=== PATIENT | female | born 1980 ===

== ENCOUNTER 2017-03-27 11:45 | Emergency (ER) | payer MEDICAID, OTHER ==
[2017-03-27 12:20] VITALS: BMI 26.0
[2017-03-27] MEDS ORDERED: Sodium Chloride 0.9% 1,000 ML IV ONE ×2 (12:27→15:50)
--- NOTE | 2017-03-27 12:27 | C.PDOC ---
History Of Present Illness 37 Y/O FEMALE PRESENTS TO ED FOR EVALUATION OF EDWARDS, ACUTE EXAC CHRONIC BACK PAIN , ASTHMA EXAC, SINUS OCHOA X SEV DAYS. NO FEVER. PS GETS EDWARDS 1-2X/MO BUT CURRENT EDWARDS MORE PROLONGED THAN USUAL. PATIENT ADMITS TO TIGHTNESS ,NAUSEA, VOMITING AND CURRENT BACK PAIN R LB, SIM TO PRIOR. PS HASNT HAD ASTHMA SX "FOR A LONG TIME", NO LONGER HAS ASTHMA MEDS. NO SMOKING. EDWARDS, ACUTE EXAC CHRONIC BACK PAIN, ASTHMA EXAC, SINUS OCHOA X SEV DAYS. NO FEVER. PS GETS EDWARDS 1-2X/MO BUT CURRENT EDWARDS MORE PROLONGED THAN USUAL. +NV. CURRENT BACK PAIN R LB, SIM TO PRIOR. PS HASNT HAD ASTHMA SX "FOR A LONG TIME", NO LONGER HAS ASTHMA MEDS. CO TIGHTNESS. NO SMOKING. EXAM MILD DIST NONTOXIC HEENT +SINUS OCHOA RHINORRHEA; THROAT CLEAR NO ERYTHEMA, EXUDATE, SWELL NO PHOTOPHOBIA NECK SUPPLE NO MENINGISMUS LUNGS OCC EXP WHEEZE NO TACHYPNEA, RETRACTION NEURO INTACT NO FOCAL DEF BACK NONTEND. LIMITED ROM DUE TO PAIN REMAINDER NEG Time Seen by Provider: 03/27/17 12:04 Chief Complaint (Nursing): GI Problem History Per: Patient History/Exam Limitations: no limitations Onset/Duration Of Symptoms: Days Current Symptoms Are (Timing): Still Present Past Medical History Reviewed: Historical Data, Nursing Documentation, Vital Signs Vital Signs: Last Vital Signs Temp 99.0 F 03/27/17 15:56 Pulse 100 H 03/27/17 15:56 Resp 18 03/27/17 15:56 BP 93/57 L 03/27/17 15:56 Pulse Ox 98 03/27/17 15:56 - Medical History PMH: No Chronic Diseases Surgical History: Cholecystectomy Family History: States: No Known Family Hx - Social History Hx Alcohol Use: No Hx Substance Use: No - Immunization History Hx Tetanus Toxoid Vaccination: No Hx Influenza Vaccination: No Hx Pneumococcal Vaccination: No Review Of Systems Constitutional: Negative for: Fever, Chills ENT: Positive for: Nose Congestion Gastrointestinal: Positive for: Nausea, Vomiting Musculoskeletal: Positive for: Back Pain Skin: Negative for: Rash Neurological: Positive for: Headache. Negative for: Weakness, Numbness Physical Exam - Physical Exam Appears: Non-toxic, Other (In mild distress) Skin: Warm, Dry, No Rash Head: Atraumatic, Normacephalic Eye(s): bilateral: Normal Inspection Ear(s): Bilateral: Normal Nose: Other (Congestion, Rhinorrhea) Oral Mucosa: Moist Throat: Normal, No Erythema, No Exudate Neck: Normal ROM, Supple Cardiovascular: Rhythm Regular Respiratory: Normal Breath Sounds, No Rales, No Rhonchi, Wheezing (Occasional expiratory b/l ) Gastrointestinal/Abdominal: Soft, No Tenderness, No Guarding, No Rebound Back: No CVA Tenderness Extremity: Capillary Refill (<2 seconds), Other (Limited ROM due to pain) Neurological/Psych: Oriented x3 ED Course And Treatment O2 Sat by Pulse Oximetry: 100 (RA) Pulse Ox Interpretation: Normal Progress - Re-Evaluation Re-evaluation Note: 03/27/17 14:58 FEELS BETTER APPEARS COMFORTABLE NAD 03/27/17 15:53 NO UO. WILL REPEAT IVF, REASSESS 03/27/17 16:59 +UO X 2. WISHES DC HOME - Data Reviewed Data Reviewed: Old records Medical Decision Making Medical Decision Making: Plan: Neb treatment ordered, Tylenol, Reglan, IV fluids administered Disposition Counseled Patient/Family Regarding: Diagnosis, Need For Followup, Rx Given - Disposition Referrals: YOUR,PMD [Other] Disposition: HOME/ ROUTINE Disposition Time: 16:59 Condition: IMPROVED Prescriptions: Albuterol HFA [Ventolin HFA 90 mcg/actuation (8 g)] 1 puff IH Q4 #1 inhaler Metoclopramide [Reglan] 1 tab PO TID PRN #25 tab PRN Reason: Nausea/Vomiting Oseltamivir [Tamiflu] 75 mg PO BID #9 cap predniSONE [Prednisone] 60 mg PO DAILY #12 tab Instructions: Asthma (ED), Migraine Headache (ED) Forms: [employer] (Danish) - Clinical Impression Clinical Impression: Migraine, Asthma exacerbation, Influenza-like illness - Scribe Statement The provider has reviewed the documentation as recorded by the Faraibaguilar Jones All medical record entries made by the Scribe were at my direction and personally dictated by me. I have reviewed the chart and agree that the record accurately reflects my personal performance of the history, physical exam, medical decision making, and the department course for this patient. I have also personally directed, reviewed, and agree with the discharge instructions and disposition.
[2017-03-27] MEDS ORDERED: Albuterol-Ipratrop 3 mg / 0.5 (3 ml) UD IH SCH (12:30)
[2017-03-27] MEDS ORDERED: Albuterol-Ipratrop 3 mg / 0.5 (3 ml) UD ONE (12:53)
[2017-03-27] MEDS ORDERED: Sodium Chloride 0.9% 1,000 ML ONE ×2 (12:57→16:03)
[2017-03-27 14:14] VITALS: TEMP 99
[2017-03-27 16:59] VITALS: O2SAT 100
[2017-03-27 17:33] VITALS: BP 106/65; PULSE 81; RESP 16
== END 2017-03-27 17:33 | disposition home or self-care (01) ==
LOC: C.ER 11:45
DX: G43.909 Migraine, unspecified, not intractable, without status migrainosus (principal); J45.901 Unspecified asthma with (acute) exacerbation; J11.1 Influenza due to unidentified influenza virus with other respiratory manifestations
CPT/HCPCS: 94640; 96361; 96372; 96374; 99284; J2765; J3030; J7040

== ENCOUNTER 2017-08-21 20:09 | Inpatient (IN) | payer MEDICAID, OTHER ==
[2017-08-21] MEDS ORDERED: Oxytocin 30 UNIT 30 UNITS/500 ML BAG IV ONE ×2 (21:34→23:46)
[2017-08-21] MEDS ORDERED: Lactated Ringer's 1,000 ML IV ONE (21:34)
[2017-08-21] MEDS ORDERED: Lactated Ringer's 1,000 ML IV SCH (21:45)
[2017-08-21] MEDS ORDERED: Fentanyl/Bupivacaine HCl 250 ML EPI ONE (22:25)
[2017-08-21 22:28] LABS: BASO % 0.3 % (0.0-2.0); EOS # 0.1 K/uL (0.0-0.7); EOS % 1.6 % (0.0-4.0); HEMOGLOBIN 12.3 g/dL (11.0-16.0); LYMPH # 1.9 K/uL (1.0-4.3); LYMPH % 25.1 % (20.0-40.0); MEAN CELL VOLUME 87.8 fL (81.0-99.0); MEAN CORPUSCULAR HEMOGLOBIN 29.3 pg (27.0-31.0); MEAN CORPUSCULAR HGB CONC 33.4 g/dL (33.0-37.0); MEAN PLATELET VOLUME 12.9 fL (7.2-11.7); MONO # 0.5 K/uL (0.0-0.8); MONO % 6.2 % (0.0-10.0); NEUT # 5.1 K/uL (1.8-7.0); NEUT % 66.8 % (50.0-75.0); NRBC % 0.1 % (0.0-2.0); RBC 4.2 Mil/uL (3.80-5.20); RED CELL DISTRIBUTION WIDTH 13.2 % (11.5-14.5); WHITE BLOOD COUNT 7.7 K/uL (4.8-10.8)
[2017-08-21 22:32] LABS: URINE BACTERIA RARE (<OCC); URINE BILIRUBIN NEGATIVE (NEGATIVE); URINE BLOOD NEGATIVE (NEGATIVE); URINE CLARITY Clear (Clear); URINE COLOR Straw (YELLOW); URINE GLUCOSE (UA) NORMAL (Normal); URINE LEUKOCYTE ESTERASE NEG Leu/uL (Negative); URINE PROTEIN NEGATIVE (NEGATIVE); URINE UROBILINOGEN NORMAL mg/dL (0.2-1.0)
[2017-08-21 22:41] LABS: ALBUMIN 3.5 g/dL (3.5-5.0); ALT/SGPT 59 U/L (9-52); AST/SGOT 58 U/L (14-36); BLOOD UREA NITROGEN 8 mg/dL (7-17); CALCIUM 9.1 mg/dl (8.6-10.4); GFR AFRICAN-AMERICAN > 60; GFR NON-AFRICAN AMERICAN > 60
--- NOTE | 2017-08-21 22:54 | OBHP ---
Datetime: 08/21/2017 22:23 IP Adm Impression: Term, intrauterine ; No Active Labor IP Chief Complaint Other: Advanced maternal age IP Admit Plan: Admit to unit; Initiate labor augmentation protocol Admit Comment, IP Provider: Patient seen and evlauated at approximately 2120 hours; received in bed in LDR#3 37 y.o. , LMP 11/23/16, SUJEY 08/28/17, EGA 39 weeks c/o Ctx: onset last night, then faded. Str onger at 1000 hours, then decreased; then much stronger 1600 hours, every 5 to 1- minutes, pain scale , 8/10. (+) AFM; denies LOF, VB.. care: Dr. Grossman; denies issues. last visit 08/19/17. (per Dr. Grossman, abnormal GCT 140; normal 3 hr GTT. AMA - declined amniocentesis. No other issues. P Ob: , 2001, male, 7 1/2 lb. [facility] [place]; no complications PGYN: 14 x oligomenorrhea.."without OCs I don't have a period" x 5. Has been OCs x 20 years total PMH: Denies PSH: denies Allergies: naprosyn = headaches, elevated BP Meds: PNV Soc Hx: denies tobacco, illicit drug or EtOH use. FOB not involved. Lives with her son. 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 - no med issues. Father alive 72 y.o. - DM. N ofam h/o cancer P.E.: as above. WD in moderate discomfort with contractions. Awake, alert, oriented to time, pers on and place. Pleasant and cooperative. Suport person present Assessment: 37 y.o. P1, 39weeks, early labor. Category 1 tracing. Case D/W Dr. Grossman who would li ke to proceed as follows, intracervical ballon with pitocin. Patient is in agreement. Desires epidura l for pain relief. Patient is clinically stable. Plan: 1) Admit 2) NPO 3) Adimsison labs 4) Continuous EFM 5) IVFs 6) Epidural 7) Intracervical balloon 8) Pitocin 9) Anticipate vaginal delivery - as per, and discussed with, Dr. Grossman Pelvic Type - PN: Adequate Extremities - PN: Abnormal Abdomen - PN: Normal Back - PN: Normal Breast - PN: Not Done Lungs - PN: Normal Heart - PN: Normal Thyroid - PN: Normal Neurologic - PN: Normal HEENT - PN: Normal General - PN: Normal Weight - Estimated: 3632 Presentation-Admit: Vertex FHR - Baseline A Provider: 145 Membranes, Provider: Intact Contraction Comments Provider: cisco Comments, ACOG Physical Exam: Abdomen: Gravid. Soft. Firm with contractions. Fundal height 38 cm All other systems reviewed and are negative Gestation - Est Wks by US: 39.0 EGA AdmitDate IP: 39.0 Vital Signs Provider: Reviewed; Within Normal Limits IP Indication for Induction: Not Applicable IP Chief Complaint: Uterine contractions NICHD Variability Prov Fetus A: Moderate 6-25bpm NICHD Accel Fetus A IP Provider: 15X15 FHR Category Provider Fetus A: Category I NICHD Decel Fetus A IP Provider: None Dilatation, Provider: 2 Effacement, Provider: 40 Station, Provider: -3 Genitourinary Exam: Normal DTRs - PN: Normal
--- NOTE | 2017-08-21 22:59 | OBADHP ---
Datetime: 08/21/2017 22:23 IP Chief Complaint Other: Advanced maternal age Admit Comment, IP Provider: Patient seen and evlauated at approximately 2120 hours; received in bed in LDR#3 37 y.o. , LMP 11/23/16, SUJEY 08/28/17, EGA 39 weeks c/o Ctx: onset last night, then faded. Str onger at 1000 hours, then decreased; then much stronger 1600 hours, every 5 to 1- minutes, pain scale , 8/10. (+) AFM; denies LOF, VB.. care: Dr. Grossman; denies issues. last visit 08/19/17. (per Dr. Grossman, abnormal GCT 140; normal 3 hr GTT. AMA - declined amniocentesis. No other issues. P Ob: , 2001, male, 7 1/2 lb. [facility] [place]; no complications PGYN: 14 x oligomenorrhea.."without OCs I don't have a period" x 5. Has been OCs x 20 years total PMH: Denies PSH: denies Allergies: naprosyn = headaches, elevated BP Meds: PNV Soc Hx: denies tobacco, illicit drug or EtOH use. FOB not involved. Lives with her son. 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 - no med issues. Father alive 72 y.o. - DM. N ofam h/o cancer P.E.: as above. WD in moderate discomfort with contractions. Awake, alert, oriented to time, pers on and place. Pleasant and cooperative. Suport person present Assessment: 37 y.o. P1, 39weeks, early labor. Category 1 tracing. Case D/W Dr. Grossman who would li ke to proceed as follows, intracervical ballon with pitocin. Patient is in agreement. Desires epidura l for pain relief. Patient is clinically stable. Plan: 1) Admit 2) NPO 3) Adimsison labs 4) Continuous EFM 5) IVFs 6) Epidural 7) Intracervical balloon 8) Pitocin 9) Anticipate vaginal delivery - as per, and discussed with, Dr. Grossman Pelvic Type - PN: Adequate Extremities - PN: Abnormal Abdomen - PN: Normal Back - PN: Normal Breast - PN: Not Done Lungs - PN: Normal Heart - PN: Normal Thyroid - PN: Normal Neurologic - PN: Normal HEENT - PN: Normal General - PN: Normal Weight - Estimated: 3632 Presentation-Admit: Vertex FHR - Baseline A Provider: 145 Membranes, Provider: Intact Contraction Comments Provider: cisco Comments, ACOG Physical Exam: Abdomen: Gravid. Soft. Firm with contractions. Fundal height 38 cm All other systems reviewed and are negative Gestation - Est Wks by US: 39.0 Vital Signs Provider: Reviewed; Within Normal Limits IP Chief Complaint: Uterine contractions NICHD Variability Prov Fetus A: Moderate 6-25bpm NICHD Accel Fetus A IP Provider: 15X15 FHR Category Provider Fetus A: Category I NICHD Decel Fetus A IP Provider: None Dilatation, Provider: 2 Effacement, Provider: 40 Station, Provider: -3 Genitourinary Exam: Normal DTRs - PN: Normal EGA AdmitDate IP: 39.0 IP Adm Impression: Term, intrauterine ; No Active Labor IP Admit Plan: Admit to unit; Initiate labor augmentation protocol
[2017-08-22] MEDS ORDERED: Oxycodone/Acetaminophen 5/325 mg Tab PO PRN (13:36)
--- NOTE | 2017-08-22 18:44 | HP ---
PROCEDURE DATE: 08/21/2017 HISTORY OF PRESENT ILLNESS: The patient is a 37-year-old female, 2, para 1 with a history of one vaginal delivery in 2002, who presented complaining of contractions since 6 p.m. She denies any leakage of fluid. She denies any vaginal bleeding. Her course has been essentially unremarkable except for an elevated one-hour glucose challenge test with a normal three-hour glucose tolerance test and the patient was also noted to have left pyelectasis on an ultrasound. She is also of advanced maternal age and declined amniocentesis. PAST OBSTETRICAL HISTORY: Significant for a normal spontaneous vaginal delivery in 2002. MEDICAL HISTORY: Unremarkable. SOCIAL HISTORY: She does not smoke or drink. Currently, she is not taking any calcium or above medication. PHYSICAL EXAMINATION: VITAL SIGNS: Her blood pressure is 110/70, pulse is 72, respiratory rate is 20, temperature is 98.8. HEAD, EAR, NOSE AND THROAT: Examinations are within normal. CHEST: Clear. CARDIAC: Reveals normal heart sounds without any murmurs. LUNGS: Clear. BREASTS: Reveal no masses. ABDOMEN: Soft. EXTREMITIES: Nontender. NEUROLOGIC: She is awake and oriented x3 with normal reflexes. PELVIC: Currently, balloon is out. She is 5 cm, 80% effaced, -3 station. The patient has rupture of membranes as well as fluid was obtained. ADMITTING DIAGNOSIS: Intrauterine at 38 weeks six days in early labor. PLAN: Currently, we are anticipating a vaginal delivery. Prior to being scheduled for the surgical procedure, I explained to the patient the nature of the disease process and the extent of the contemplated procedures. I discussed with the patient the risk and potential complication of the procedure to include but not limited to shoulder dystocia with persistent brachial plexus injury, cervical and vaginal tears, cervical incompetence, hemorrhage, anorectal tears, pelvic floor damage, chorioamnionitis, "prolapse", amniotic fluid embolism, premature , breathing difficulties in the baby, low score, injury 0241, endometritis, urinary tract infection, atelectasis, pneumonia, pulmonary embolism, damage to bladder, damage to ureter, renal insufficiency, renal failure, wound infection, wound dehiscence, incisional hernia. I discussed with the patient alternative methods of therapy including those I recommended and those I did not recommend, invasive and noninvasive including non-treatment. All the questions from the patient were encouraged, welcomed and answered to her satisfaction. The patient had been given the opportunity to store her own blood for using in autologous blood transfusion prenatally and she had declined. Richard Spears MD
[2017-08-23 08:46] LABS: BASO % 0.2 % (0.0-2.0); EOS # 0.1 K/uL (0.0-0.7); EOS % 1.2 % (0.0-4.0); HEMOGLOBIN 11.3 g/dL (11.0-16.0); LYMPH # 2.7 K/uL (1.0-4.3); LYMPH % 21.3 % (20.0-40.0); MEAN CELL VOLUME 88.2 fL (81.0-99.0); MEAN CORPUSCULAR HGB CONC 32.9 g/dL (33.0-37.0); MEAN PLATELET VOLUME 12.9 fL (7.2-11.7); MONO # 0.6 K/uL (0.0-0.8); NEUT # 9.1 K/uL (1.8-7.0); NEUT % 72.3 % (50.0-75.0); NRBC % 0.1 % (0.0-2.0); RBC 3.88 Mil/uL (3.80-5.20); RED CELL DISTRIBUTION WIDTH 13.2 % (11.5-14.5)
[2017-08-23 08:53] LABS: WHITE BLOOD COUNT 12.5 K/uL (4.8-10.8)
--- NOTE | 2017-08-23 08:58 | OP ---
PROCEDURE DATE: 08/22/2017 DELIVERY NOTE DESCRIPTION OF PROCEDURE: The patient was in the delivery room in a stable condition. She was prepped and draped in a sterile fashion. The patient delivered a live male infant, Apgars 9 at 1 minute and 9 at 5 minutes, over a median episiotomy. The patient delivered directly occipital anterior with the baby showing no rotation of the shoulders and both shoulders in a lateral location. There was no nuchal cord. Cord was doubly clamped and cut. Placenta was manually removed. The episiotomy was repaired in the usual fashion using 2-0 chromic. Estimated blood loss for the procedure was 150 mL. Pad, needle, and instrument counts were correct x2. There were no complications. Richard Spears MD
--- NOTE | 2017-08-23 09:03 | OBDS ---
DELIVERY PERSONNEL Delivery Doctor: Mamta Spears MD Drying Room Supervisor: Lauren Charles RN MATERNAL INFORMATION Delivery Anesthesia: Epidural Medications in Delivery: Pitocin Estimated Blood Loss (ml): 150 Maternal Complications: None RN Comments: to a live baby boy to mother's abd., 9:9, stable, skin to skin with mother. LABOR SUMMARY EDC: 08/28/2017 00:00 No. Babies in Womb: 1 Attempted: No Labor Anesthesia: Epidural LABOR INFORMATION Onset of Labor: 08/21/2017 16:00 Complete Dilatation: 08/22/2017 12:23 Cervical Ripening Agents: Pérez Balloon Oxytocin: Induction Group B Beta Strep: Negative Antibiotics # of Doses: 0 Antibiotics Time of Last Dose: n/a Reason Steroids Not Administered: Not Applicable [facility]ES Membranes Rupture Method: Artificial Rupture of Membranes: 08/22/2017 06:13 Length of Rupture (hrs): 7.08 Amniotic Fluid Color: Bloody Amniotic Fluid Amount: Small Amniotic Fluid Odor: Normal STAGES OF LABOR Stage 1 hrs: 20 Stage 1 min: 23 Stage 2 hrs: 0 Stage 2 min: 55 Stage 3 hrs: 0 Stage 3 min: 5 Total Time in Labor hrs: 21 Total Time in Labor min: 23 VAGINAL DELIVERY Episiotomy: Median Laceration Extension: N/A Laceration Type: None Initial Vag Sponge Count: 10 Final Vag Sponge Count: 10 Initial Vag Sharps Count: 1 Final Vag Sharps Count: 1 Sponge Count Correct: Yes; Vaginal Sweep Performed Sharps Count Correct: Yes Count Comment: Counted with MD. BABY A INFORMATION Infant Delivery Date/Time: 08/22/2017 13:18 Method of Delivery: Vaginal Born in Route : No : N/A Forceps: N/A Vacuum Extraction: N/A Shoulder Dystocia : No SHOULDER DYSTOCIA BABY A Infant Delivery Date/Time: 08/22/2017 13:18 PRESENTATION/POSITION BABY A Presentation: Cephalic Cephalic Presentation: Face Vertex Position: Left Occipital Anterior Breech Presentation: N/A PLACENTA INFORMATION BABY A Placenta Delivery Time : 08/22/2017 13:23 Placenta Method of Delivery: Spontaneous Placenta Status: Delivered SCORES BABY A Heart Rate 1 min: >100 bpm Resp Effort 1 min: Good Cry Reflex Irritability 1 min: Cough or Sneeze or Pulls Away Muscle Tone 1 min: Active Motion Color 1 min: Body [place], Extremities Blue SCORE 1 MIN: 9 Heart Rate 5 min: >100 bpm Resp Effort 5 min: Good Cry Reflex Irritability 5 min: Cough or Sneeze or Pulls Away Muscle Tone 5 min: Active Motion Color 5 min: Body [place], Extremities Blue SCORE 5 MIN: 9 INFORMATION BABY A Gestational Age at Delivery: 39.1 Gestational Status: Term (Annotations: Data stored by [facility] on behalf of user) Infant Outcome : Liveborn Condition : Stable Infant Sex: Male IDENTIFICATION/MEDS BABY A ID Band Number: [id number] ID Band Location: Left Leg; Left Arm Sensor Applied: Yes Sensor Number: [id number] Sensor Location : Cord Clamp Vitamin K Given : Not Given Erythromycin Given: Not Given WEIGHT/LENGTH BABY A Birthweight (gms): 3615 Infant Weight (lb): 7 Weight (oz): 15 Infant Length Inches: 20.00 Length cms: 50.8 CORD INFORMATION BABY A No. Cord Vessels: 3 Nuchal Cord : N/A Nuchal Cord Other: n/a True Knot: 0 Cord Blood Taken: Yes Banking/Donate Info: n/a Infant Suction: Mouth; Nose ASSESSMENT BABY A Infant Complications: None Physical Findings at Delivery: Within Normal Limits Respirations: Appears Normal Trim Machine Adjuster/ALS Called : No Care By: Jaiden Mcneil RN Transferred To: Remains with Mother
--- NOTE | 2017-08-23 13:59 | OBPPN ---
Datetime: 08/23/2017 13:32 PP Pain Prov: Within normal limits PP Nausea Prov: Denies PP Flatus Prov: Yes PP BM Prov: Yes PP Breasts Prov: Not Done PP Heart Prov: Normal PP Lungs Prov: Normal PP Abdomen/Uterus Prov: Normal PP Lochia Prov: Normal PP Vulva/Perineum Prov: Normal PP CVA Tenderness Prov: Not Done PP Extremities Prov: Normal PP C/S Incision Prov: Not Applicable PP Progress Prov: Normal PP Impression Prov: Normal progression PP Plan Prov: Continue present management PP Progress Note Prov: Pt seen and examined per Dr. Spears's request PPD # 1 Stable and Satisfactory condition and recovery Requested a circumcision and done without complications Advanced Care Anticipate discharge home in AM IP PP Procedures: None Vital Signs Provider PP: Reviewed; Within Normal Limits
[2017-08-23] MEDS ORDERED: MedroxyPROGESTERone Depo 150 mg/mL inj IM ONE ×2 (16:00)
[2017-08-23] MEDS ORDERED: Benzocaine/Menthol 20%-0.5% Topical Spray (60 ml) EXT PRN (20:18)
[2017-08-24 08:20] VITALS: BP 97/62; PULSE 82; RESP 18; TEMP 97.3; O2SAT 97
[2017-08-24 08:20] LABS: BASO % 0.4 % (0.0-2.0); EOS # 0.3 K/uL (0.0-0.7); EOS % 2.6 % (0.0-4.0); HEMOGLOBIN 11.3 g/dL (11.0-16.0); LYMPH # 2.2 K/uL (1.0-4.3); LYMPH % 22.7 % (20.0-40.0); MEAN CELL VOLUME 88.1 fL (81.0-99.0); MEAN CORPUSCULAR HEMOGLOBIN 30.2 pg (27.0-31.0); MEAN CORPUSCULAR HGB CONC 34.3 g/dL (33.0-37.0); MEAN PLATELET VOLUME 12.4 fL (7.2-11.7); MONO # 0.5 K/uL (0.0-0.8); MONO % 5.6 % (0.0-10.0); NEUT # 6.6 K/uL (1.8-7.0); NEUT % 68.7 % (50.0-75.0); NRBC % 0.1 % (0.0-2.0); RBC 3.74 Mil/uL (3.80-5.20); RED CELL DISTRIBUTION WIDTH 13.3 % (11.5-14.5); WHITE BLOOD COUNT 9.7 K/uL (4.8-10.8)
--- NOTE | 2017-08-24 10:44 | OBPPN ---
Datetime: 08/24/2017 10:34 PP Pain Prov: Within normal limits PP Nausea Prov: Denies PP Flatus Prov: Yes PP BM Prov: Yes PP Breasts Prov: Normal PP Heart Prov: Normal PP Lungs Prov: Normal PP Abdomen/Uterus Prov: Normal PP Lochia Prov: Normal PP Vulva/Perineum Prov: Normal PP CVA Tenderness Prov: Normal PP Extremities Prov: Normal PP Comments Phys Exam Prov: Fundus firm and non-tender Episiotomy healing well PP Impression Prov: Normal progression; difficulties PP Plan Prov: Continue present management; Discharge PP Impression Other Prov: Mild Anemia/ PP Progress Note Prov: Pt seen and examined per Dr. Grossman's request PPD # 2 S/P Stable and Satisfactory condition and recovery Mild Anemia and will continue Fe daily for 3-4 more months Will D/C home with instructions to continue pelvic rest x 6-8 weeks, Cont PNV and Fe daily F/Up with Dr. Grossman in 6 weeks IP PP Procedures: None Vital Signs Provider PP: Reviewed; Within Normal Limits
--- NOTE | 2017-08-24 10:47 | OBDCSUM ---
Datetime: 08/24/2017 10:42 Discharged to, Provider: Home Follow up at, Provider: Dr. Grossman Disch Instr Activity: Normal activity Disch Instr Diet: Regular Discharge Instructions, Provider: Routine instructions given Discharge Diagnosis, Provider: Term Delivered Follow up in weeks, Provider: 6 weeks Disch Referrals: None Disch Activity Restrictions: No exercising; No lifting; No sexual activity; Nothing in vagina - Inte rcourse, tampons, douche Discharge Comment, Provider: Pt seen and examined per Dr. Grossman's request PPD # 2 S/P Stable and Satisfactory condition and recovery Mild Anemia and will continue Fe daily for 3-4 more months Will D/C home with instructions to continue pelvic rest x 6-8 weeks, Cont PNV and Fe daily F/Up with Dr. Grossman in 6 weeks Discharge Diagnosis Prov Other: Anemia Contraception after Delivery: Not Planning to Use
== END 2017-08-24 14:47 | disposition home or self-care (01) | DRG 373 ==
LOC: C.EROB 20:09 → C.4D 21:30 → C.4M 08-22 19:04
PROVIDERS: ADMIT Obstetrics & Gynecology Reproductive Endocrinology; ATTEND Obstetrics & Gynecology Reproductive Endocrinology
PROC: 10E0XZZ Delivery of Products of Conception, External Approach (ICD-10-PCS; principal; 2017-08-22)
PROC: 3E0P7VZ Introduction of Hormone into Female Reproductive, Via Natural or Artificial Opening (ICD-10-PCS; 2017-08-22)
PROC: 10907ZC Drainage of Amniotic Fluid, Therapeutic from Products of Conception, Via Natural or Artificial Opening (ICD-10-PCS; 2017-08-22)
PROC: 0W8NXZZ Division of Female Perineum, External Approach (ICD-10-PCS; 2017-08-22)
DX: O99.02 Anemia complicating childbirth (principal); O62.2 Other uterine inertia; D64.9 Anemia, unspecified; Z3A.39 39 weeks gestation of pregnancy; Z37.0 Single live birth